=== PATIENT | female | born 1985 | race African-American/Black ===

== ENCOUNTER 2025-04-15 18:47 | Emergency (ER) | payer OTHER ==
[~2025-04-15 18:47] MED LIST: Iopamidol 370 76% 100 ML VIAL ONE
[2025-04-15 19:33] LABS: Hematocrit 43.7 % (36.0-47.0); Hemoglobin 13.5 g/dL (12.0-16.0); MDiff Complete? YES; Mean Corpuscular Hemoglobin 25.7 pg (27.0-31.0); Mean Corpuscular Volume 83.0 fl (78.0-98.0); Platelet Count 491 10x3/uL (130-400); Red Blood Cell (RBC) Count 5.27 mill/uL (4.20-5.40); White Blood Cell (WBC) Count 14.0 10x3/uL (4.8-10.8)
[2025-04-15 19:44] LABS: ALT (SGPT) Less than 7 U/L (Less than 34); AST (SGOT) 18 U/L (11-34); Albumin 4.0 g/dL (3.1-4.5); Alkaline Phosphatase 79 U/L (40-110); Anion Gap 18 mmol/L (10-20); BUN (Urea Nitrogen) 8 mg/dL (7.0-18.7); Bilirubin, Total 0.3 mg/dL (0.3-1.2); Calc. Creatinine Clearance 0 mL/min (70-130); Calcium 9.0 mg/dL (7.8-10.44); Carbon Dioxide 20 mmol/L (22-29); Chloride 103 mmol/L (98-107); Globulin 4.5 g/dL (2.4-3.5); Glucose 86 mg/dL (70-105); Lipase 10 U/L (8-78); Potassium 3.9 mmol/L (3.5-5.1); Sodium 137 mmol/L (136-145)
[2025-04-15 19:45] LABS: Troponin I 0.022 ng/mL (< 0.028)
[2025-04-15 21:40] LABS: CAUTI Indications for Culture Pelvic or flank pain; Glucose, Urine (Dipstick) Negative (Negative); Leukocyte Trace (Negative); Protein, Urine (Dipstick) 100 mg/dL (Neg-Trace); RBC/HPF Greater than 50 HPF (0-3); Specific Gravity, Urine 1.020 (1.005-1.030); WBC/HPF 0-3 HPF (0-3)
[2025-04-15 21:41] LABS: Bacteria/HPF Rare-Few HPF (None Seen); Trichomonas/HPF 2+ HPF (None Seen)
[2025-04-15 21:42] LABS: Urine Culture Reflex No No
[2025-04-15] MEDS ORDERED: Acetaminophen 500 MG TAB ONE (23:53)
== END 2025-04-16 03:39 ==
LOC: MADERS 18:47
DX: D25.9 Leiomyoma of uterus, unspecified (principal); I10 Essential (primary) hypertension; F17.210 Nicotine dependence, cigarettes, uncomplicated; Z86.73 Personal history of transient ischemic attack (TIA), and cerebral infarction without residual deficits
CPT/HCPCS: 36415; 74177; 80053; 81001; 83690; 84484; 85025; 93005; 96374; J2270; Q9967

== ENCOUNTER 2025-05-11 18:55 | Outpatient (CLI) | payer OTHER ==
[2025-05-11 19:34] LABS: Anisocytosis SLIGHT = 6-15 cells (100X) (0-5/hpf); Hematocrit 46.4 % (36.0-47.0); Hemoglobin 14.1 g/dL (12.0-16.0); MDiff Complete? YES; Mean Corpuscular Hemoglobin 25.5 pg (27.0-31.0); Mean Corpuscular Volume 83.9 fl (78.0-98.0); Platelet Adequacy Comment Appears Increased; Platelet Count 423 10x3/uL (130-400); Red Blood Cell (RBC) Count 5.54 mill/uL (4.20-5.40); White Blood Cell (WBC) Count 12.1 10x3/uL (4.8-10.8)
== END 2025-05-11 18:56 | disposition home or self-care (01) ==
LOC: MADLAB 18:55
PROVIDERS: ATTEND Nurse Practitioner Primary Care
DX: Z13.228 Encounter for screening for other metabolic disorders (principal); I10 Essential (primary) hypertension
CPT/HCPCS: 85025

== ENCOUNTER 2025-05-13 13:06 | Outpatient (CLI) | payer OTHER ==
[2025-05-13 13:20] LABS: Anion Gap 19 mmol/L (10-20); BUN (Urea Nitrogen) 11 mg/dL (7.0-18.7); Calc. Creatinine Clearance 0 mL/min (70-130); Calcium 9.6 mg/dL (7.8-10.44); Carbon Dioxide 23 mmol/L (22-29); Chloride 104 mmol/L (98-107); Glucose 76 mg/dL (70-105); Potassium 4.0 mmol/L (3.5-5.1); Sodium 142 mmol/L (136-145)
== END 2025-05-13 13:07 | disposition home or self-care (01) ==
LOC: MADLAB 13:06
PROVIDERS: ATTEND Family Medicine
DX: M62.81 Muscle weakness (generalized) (principal); M06.9 Rheumatoid arthritis, unspecified
CPT/HCPCS: 80048

== ENCOUNTER 2025-07-07 10:08 | Outpatient (CLI) | payer OTHER ==
[2025-07-07 10:53] LABS: Cocaine Metabolite Screen Negative (Negative); THC/Cannabinoid Screen PRELIM POSITIVE (Negative); Tricyclic Screen Negative (Negative)
== END 2025-07-07 10:09 | disposition home or self-care (01) ==
LOC: MADLAB 10:08
PROVIDERS: ATTEND Nurse Practitioner Primary Care
DX: F33.2 Major depressive disorder, recurrent severe without psychotic features (principal); M62.81 Muscle weakness (generalized)
CPT/HCPCS: 80306